=== PATIENT | male | born 1955 | race Caucasian/White ===

== ENCOUNTER → 2021-06-23 | Outpatient (CLI) | payer MEDICARE, MEDICAID ==
[~2021-06-23] VITALS: Ht 170.2 cm; Wt 82.6 kg
[~2021-06-23] MED LIST: LISI10TA25 PO; LOVA10TA PO; METF-397 PO; OMEP40CA6 PO
== END | disposition home or self-care (01) ==
LOC: PREOP 07:11
PROVIDERS: ATTEND Surgery
DX: Z01.818 Encounter for other preprocedural examination (principal)

== ENCOUNTER 2021-07-04 11:00 | Day surgery (SDC) | payer MEDICARE, MEDICAID ==
[~2021-07-04] VITALS: Ht 170.2 cm; Wt 82.6 kg
[2021-07-04 11:10] VITALS: BP 134/86
[2021-07-04] MEDS ORDERED: LACTATED RINGERS 1,000 ML IV STA (11:44)
--- NOTE | 2021-07-04 11:45 | Progress Note-Pre Operative ---
Pre-Operative Progress Note H&P Reviewed The H&P was reviewed, patient examined and no changes noted. Time Seen by Provider: 11:44 Date H&P Reviewed: Jul 04, 2021 Time H&P Reviewed: 11:44 Pre-Operative Diagnosis: Hx of polyps MIKE HELTON DO Jul 04, 2021 11:45
[2021-07-04] MEDS ORDERED: LACTATED RINGERS 1,000 ML IV ONE (11:56)
[2021-07-04] MEDS ORDERED: PROPOFOL INJECTION 50 ML IV ONE (12:06)
[2021-07-04 12:35] VITALS: BP 111/73
--- NOTE | 2021-07-04 12:38 | Progress Note-Post Operative ---
Post-Operative Progess Note Surgeon (s)/Wedding Planning Internship (s) Surgeon MIKE HELTON DO Wedding Planning Internship: [facility] Pre-Operative Diagnosis Hx of polyps Post-Operative Diagnosis polyps diverticula int hemorrhoids Procedure & Operative Findings Date of Procedure 07/04/21 Procedure Performed/Findings Colon with snare polypectomy Colon with hot bx PROCEDURE NOTE: After informed consent was obtained, the patient was brought to the endoscopy suite, placed in bed in left lateral decubitus position. He was administered IV sedation by the [employer] who then monitored his vitals the entire time, heart rate, blood pressure and pulse ox and the scope was inserted, pushed all the way to about 140 cm and pushed into the cecum, took a picture of appendiceal orifice and noted the ileocecal valve. Saw a flat polyp so elected to do a hot biopsy; after doing this saw another large polyp right next to appendiceal orifice (had suctioned out all the liquid stool and was able to see it. Because it was larger and I wanted to remove the entire polyp; elected to do a snare polypectomy (hot) and able to get all of it. Then slowly withdrew the scope insufflating to look circumferentially at the talbert starting in the cecum, up the ascending colon; where I found another pedunculated polyp that I elected to remove with snare polypectomy. Continued up to the hepatic flexure, then down the transverse colon, splenic flexure, into the descending colon down and into the sigmoid where I saw some diverticula; took a picture. Finally into the rectal vault and retroflexed the scope. Took picture of the internal hemorrhoids. The patient tolerated the procedure. He was recovered in endoscopy suite. Anesthesia Type IV sedation by [employer] Estimated Blood Loss Estimated blood loss (mL): scant Specimens/Packing Specimens Removed cecal polyp x 2 asc colon polyp MIKE HELTON DO Jul 04, 2021 12:38
--- NOTE | 2021-07-04 12:39 | Endoscopy Discharge Instruct ---
Endo Procedure/Findings Findings 1.: Polyp 2.: Diverticulosis 3.: Internal Hemorrhoids Discharge Instructions - Activity: You might feel a little sleepy until tomorrow. This is due to the medicine you received to relax you. Until tomorrow, you should: NOT drive a car, operate machinery or power tools. NOT drink any alcoholic beverages. NOT make any important decisions or sign importortant papers. Do not return to work until tomorrow, unless otherwise instructed. Resume previous activities tomorrow. Diet: Start by taking liquids. If you tolerate liquids, advance to solid food. 1.: Colonscopy in 5 years Notify Physician - If you experience excessive bleeding, unusual abdominal pain, fever, or chest pain, contact your doctor immediately. MIKE HELTON DO Jul 04, 2021 12:39
[2021-07-04 12:40] VITALS: BP 114/72
--- NOTE | 2021-07-04 12:41 | Anesthesia-General Post-Op ---
MAC Patient Condition Mental Status/LOC: Same as Preop Cardiovascular: Satisfactory Nausea/Vomiting: Absent Respiratory: Satisfactory Pain: Controlled Complications: Absent Post Op Complications Complications None Follow Up Care/Instructions Patient Instructions None needed. Anesthesiology Discharge Order Discharge Order Patient is doing well, no complaints, stable vital signs, no apparent adverse anesthesia problems. No complications reported per nursing. GAMAL VEE CRNA Jul 04, 2021 12:41
[2021-07-04 12:45] VITALS: BP 114/72
[2021-07-04 12:59] VITALS: BP 116/73
== END 2021-07-04 13:05 | disposition home or self-care (01) ==
LOC: ENDO 11:00
PROVIDERS: ATTEND Surgery
DX: Z12.11 Encounter for screening for malignant neoplasm of colon (principal); D12.2 Benign neoplasm of ascending colon; D12.0 Benign neoplasm of cecum; K57.30 Diverticulosis of large intestine without perforation or abscess without bleeding; K64.8 Other hemorrhoids; E11.9 Type 2 diabetes mellitus without complications; K21.9 Gastro-esophageal reflux disease without esophagitis; I10 Essential (primary) hypertension; Z87.891 Personal history of nicotine dependence; Z79.84 Long term (current) use of oral hypoglycemic drugs; Z79.899 Other long term (current) drug therapy; Z80.0 Family history of malignant neoplasm of digestive organs
CPT/HCPCS: 82947; 88305